=== PATIENT | female | born 1935 | race Caucasian/White ===

== ENCOUNTER 2019-10-30 19:04 | Inpatient (IN) | payer MEDICARE, OTHER ==
[~2019-10-30] VITALS: Ht 162.6 cm; Wt 66.2 kg
[~2019-10-30 19:04] MED LIST: CENTRUM SILVER1 EACH PO; CHLO25B PO; CLON.1 PO; RAW CALCIUM; VERA240ER PO
[2019-10-30 19:38] LABS: BASOPHILS ABSOLUTE AUTO 0.07 K/mm3 (0.00-0.23); BASOPHILS PERCENT AUTO 1 % (0-2); EOSINOPHILS ABSOLUTE AUTO 0.15 K/mm3 (0.00-0.68); EOSINOPHILS PERCENT AUTO 1 % (0-6); Hematocrit 51.1 % (33.0-51.0); Hemoglobin 17.7 g/dL (11.5-16.0); IMMATURE GRAN ABSOLUTE AUTO 0.03 K/mm3 (0.00-0.10); IMMATURE GRAN PERCENT AUTO 0 % (0-1); LYMPHOCYTES ABSOLUTE AUTO 3.14 K/mm3 (0.84-5.20); LYMPHOCYTES PERCENT AUTO 28 % (21-46); MONOCYTES ABSOLUTE AUTO 0.58 K/mm3 (0.16-1.47); MONOCYTES PERCENT AUTO 5 % (4-13); Mean Corpuscular HGB 30.9 pg (26.0-34.0); Mean Corpuscular HGB Conc 34.6 g/dL (31.5-36.5); Mean Corpuscular Volume 89 fL (80-100); Mean Platelet Volume 11.1 fL (9.1-12.4); NEUTROPHILS ABSOLUTE AUTO 7.32 K/mm3 (1.96-9.15); NEUTROPHILS PERCENT AUTO 65 % (41-73); Platelet Count 217 K/mm3 (150-400); RDW Coefficient Variation 13.5 % (11.7-14.2); RDW Standard Deviation 44.3 fL (35.1-46.3); Red Blood Cell Count 5.72 M/mm3 (3.80-5.20); White Blood Cell Count 11.29 K/mm3 (4.00-11.30)
[2019-10-30 20:02] LABS: Alanine Aminotransfer (ALT/SGP 37 U/L (12-78); Albumin/Globulin Ratio 1.3 (0.8-1.8); Alk Phos 96 U/L (50-136); Anion Gap 8 mmol/L (6-16); Aspartate Aminotrans (AST/SGOT 29 U/L (12-37); Bilirubin, Total 0.6 mg/dL (0.1-1.0); Blood Urea Nitrogen 16 mg/dL (8-24); Bun/Creatinine Ratio 29.4 (12.0-20.0); CO2, Blood 20 mmol/L (21-32); Calcium, Blood 9.7 mg/dL (8.5-10.1); Chloride, Blood 105 mmol/L (98-108); Creatinine, Blood 0.54 mg/dL (0.40-1.00); Globulin, Blood 3.1 g/dL (2.2-4.0); Glomerular Filtration Rate >60 (60-); Glucose, Blood 145 mg/dL (70-99); Potassium, Blood 4.3 mmol/L (3.5-5.5); Sodium, Blood 133 mmol/L (136-145); Total Protein, Blood 7.1 g/dL (6.4-8.2)
[2019-10-30 21:01] LABS: International Normalized Ratio 1.07; Prothrombin Time Results 11.4 Sec (9.7-11.5)
[2019-10-30] MEDS ORDERED: ALLO300 PO (21:22)
[2019-10-30] MEDS ORDERED: Micro-K10 MEQ (21:22)
[2019-10-30] MEDS ORDERED: LATA.005SO BOTHEYES (21:23)
[2019-10-30] MEDS ORDERED: Aspir 8181 MG PO (21:23)
[2019-10-30] MEDS ORDERED: VITAMIN D350 MCG PO (21:23)
[2019-10-30] MEDS ORDERED: BETIMOL5 ML BOTHEYES (21:24)
[2019-10-30] MEDS ORDERED: Cartia Xt240 MG PO (21:26)
[2019-10-30] MEDS ORDERED: LOSA25 PO (21:28)
--- NOTE | 2019-10-31 05:30 | NUR ---
SHIFT SUMMARY PT SLEEPING IN ROOM COMFORTABLY AT THIS TIME. NO ACUTE CHANGES IN STATUS SINCE ARRIVAL. PT HAS REMAINED CP FREE SINCE ARRIVAL. TROPONIN DID ELEVATE DURING NIGHT, PT REMAINED ASYMPTOMATIC OF LAB LEVEL. HEPARIN GTT INFUING IN PIV PER PHARMACY. RESP EVEN UNLABORED ON RA W/ SATS >92%. DENIES OTHER NEEDS. CALL LIGHT IN REACH. WILL GIVE BEDSIDE REORT TO ONCOMING RN.
--- NOTE | 2019-10-31 19:19 | NUR ---
PCU DAYSHIFT SUMMARY PATIENT ALERT AND ORIENTED X4 T/O SHIFT. VSS. ROOM AIR, RESP E/U. PATIENT AMBULATED TO BATHROOM WITH MODERATE ASSIST X1. R RADIAL ACCESS SITE WNL. TR BAND IN PLACE. ARM BOARD IN PLACE. PATIENT HAS CALL LIGHT W/I REACH. NO CARDIAC EVENTS PER PENSION AGENT. REPORTED TO NOC SHIFT RN.
[2019-11-01 04:08] LABS: BASOPHILS ABSOLUTE AUTO 0.04 K/mm3 (0.00-0.23); BASOPHILS PERCENT AUTO 0 % (0-2); EOSINOPHILS ABSOLUTE AUTO 0.17 K/mm3 (0.00-0.68); EOSINOPHILS PERCENT AUTO 2 % (0-6); Hematocrit 49.9 % (33.0-51.0); Hemoglobin 17.1 g/dL (11.5-16.0); IMMATURE GRAN ABSOLUTE AUTO 0.02 K/mm3 (0.00-0.10); IMMATURE GRAN PERCENT AUTO 0 % (0-1); LYMPHOCYTES ABSOLUTE AUTO 3.39 K/mm3 (0.84-5.20); LYMPHOCYTES PERCENT AUTO 34 % (21-46); MONOCYTES ABSOLUTE AUTO 0.86 K/mm3 (0.16-1.47); MONOCYTES PERCENT AUTO 9 % (4-13); Mean Corpuscular HGB Conc 34.3 g/dL (31.5-36.5); Mean Corpuscular Volume 91 fL (80-100); NEUTROPHILS ABSOLUTE AUTO 5.46 K/mm3 (1.96-9.15); NEUTROPHILS PERCENT AUTO 55 % (41-73); RDW Coefficient Variation 13.6 % (11.7-14.2); RDW Standard Deviation 45.4 fL (35.1-46.3); Red Blood Cell Count 5.51 M/mm3 (3.80-5.20); White Blood Cell Count 9.94 K/mm3 (4.00-11.30)
[2019-11-01 04:10] LABS: Mean Platelet Volume 11.6 fL (9.1-12.4); Platelet Count 153 K/mm3 (150-400)
[2019-11-01 04:20] LABS: Anion Gap 8 mmol/L (6-16); Blood Urea Nitrogen 11 mg/dL (8-24); Bun/Creatinine Ratio 15.4 (12.0-20.0); CO2, Blood 22 mmol/L (21-32); Calcium, Blood 8.6 mg/dL (8.5-10.1); Chloride, Blood 106 mmol/L (98-108); Creatinine, Blood 0.72 mg/dL (0.40-1.00); Glomerular Filtration Rate >60 (60-); Glucose, Blood 95 mg/dL (70-99); Potassium, Blood 4.6 mmol/L (3.5-5.5); Sodium, Blood 136 mmol/L (136-145)
--- NOTE | 2019-11-01 06:08 | NUR ---
SHIFT SUMMARY PT SLEEPING IN ROOM COMFORTABLY AT THIS TIME. NO ACUTE CHANGES IN STATUS T/O NGIHT. PT SLEPT WELL. DENIED ANY CP OR SOB. RESP EVEN UNLABORED ON RA W/ SATS >92%. ANGIO SITE WNL, SOFT, NO HEMATOMA NOTED. TR BAND WAS REMOVED DURING NIGHT AND TEGADERM AND AMRBORD IN PLACE. DENIED OTHER NEEDS. BED ALARM ON D/T IMPULSIVNESS AND CALL LIGHT IN REACH. WILL GIVE BEDSIDE REPORT TO ONCOMING RN.
[2019-11-01 08:01] LABS: CHOL/HDL RATIO 3.6; Cholesterol 160 mg/dL (50-200); HDL Cholesterol 44 mg/dL (>39); LDL/HDL RATIO 1.8; Low Density Lipoprotein Chol 78 mg/dL (0-110); Triglycerides 189 mg/dL (30-160); Very Low Density Lipoprot Chol 37 mg/dL (6-32)
--- NOTE | 2019-11-01 09:00 | NUR ---
Assumed Care Pt alert and oriented, VSS, able to make needs known, conversing appropriately with staff. MD at bedside for evaluation and update on plan of care. Rehab Nursing Tech at bedside updating on plan of care. Zio placed on pt per orders from [facility] [place] tech. See shift assessment for detailed systems assessment. No acute concern to note.
--- NOTE | 2019-11-01 12:00 | NUR ---
Family of pt expressing concern to this RN regarding pt's ability to care of self at home post hospital stay. This RN gathered information regarding home life, spoke with assistant media planner. account planner to pt bedside at this time for evaluation.
[2019-11-01] MEDS ORDERED: ATOR20 PO (13:29)
[2019-11-01] MEDS ORDERED: CARV3.125 PO (13:31)
--- NOTE | 2019-11-01 15:20 | NUR ---
PCU 3 left hospital at 1520 via wheelchair and [employer]. All patient belongings with pt at time of discharge. Pt family with pt at time of discharge. Pt educated on discharge instructions by charge nurse. Pt with no further questions for this RN. Family with pt at bedside for entire shift, very supportive of pt.
== END 2019-11-01 15:24 | disposition home health service (06) | DRG 287 ==
LOC: ER 19:04 → PCU 21:41
PROVIDERS: Emergency Medicine; Internal Medicine; ADMIT Hospitalist
PROC: 4A023N7 Measurement of Cardiac Sampling and Pressure, Left Heart, Percutaneous Approach (ICD-10-PCS; principal; 2019-10-31)
PROC: B2111ZZ Fluoroscopy of Multiple Coronary Arteries using Low Osmolar Contrast (ICD-10-PCS; 2019-10-31)
DX: I51.81 Takotsubo syndrome (principal); E87.1 Hypo-osmolality and hyponatremia; I42.0 Dilated cardiomyopathy; H40.9 Unspecified glaucoma; I10 Essential (primary) hypertension; M10.9 Gout, unspecified; I73.9 Peripheral vascular disease, unspecified; Z90.12 Acquired absence of left breast and nipple; E78.5 Hyperlipidemia, unspecified; C50.919 Malignant neoplasm of unspecified site of unspecified female breast
CPT/HCPCS: 36415; 71046; 76937; 80048; 80053; 80061; 83690; 83880; 84484; 85025; 85347; 85610; 85730; 93005; 93010; 93306; 93458; 96365; 96375; 97116; 97162; 97165; 97535; 99152; 99153; 99285-25; A9270; A9270-GY; C1769; C1887; C1894; J1644; J2250; J2405; J3010; J7030; J7040; Q9967

== ENCOUNTER → 2020-06-29 | Outpatient (CLI) | payer MEDICARE, OTHER ==
[~2020-06-29] MED LIST changes: +ALLO300 PO; +ATOR20 PO; +Aspir 8181 MG PO; +BETIMOL5 ML BOTHEYES; +CARV3.125 PO; +Cartia Xt240 MG PO; +LATA.005SO BOTHEYES; +LOSA25 PO; +Micro-K10 MEQ; +VITAMIN D350 MCG PO
== END | disposition home or self-care (01) ==
LOC: LAB SHORT 15:25 → PLD 15:25
DX: L82.1 Other seborrheic keratosis (principal)
CPT/HCPCS: 88305

== ENCOUNTER → 2021-10-11 | Outpatient (CLI) | payer MEDICARE, OTHER | END | disposition home or self-care (01) | LOC: LAB SHORT 08:21 | DX: L81.9 Disorder of pigmentation, unspecified (principal) | CPT/HCPCS: 88305; 88342 ==